=== PATIENT | female | born 1950 | race Two or more races ===

== ENCOUNTER → 2024-07-17 | Outpatient (CLI) | payer OTHER, SELFPAY ==
[2024-07-17 09:24] LABS: Collection Type, Urine Clean Catch
[2024-07-17 09:55] LABS: Basophils % (Auto) 1 % (0-2.5); Eosinophils # (Auto) 0.2 Thou/mm3 (0.0-0.5); Eosinophils % (Auto) 3 % (0-10); Hematocrit 38.6 % (36.0-46.0); Hemoglobin 13.2 g/dL (12.0-16.0); Immature Granulocytes % (Auto) 0 % (0-0); Immature Granulocytes Auto 0.02 Thou/mm3 (0.00-0.00); Lymphocytes # (Auto) 2.1 Thou/mm3 (1.0-4.8); Lymphocytes % (Auto) 34 % (10-50); Mean Corpuscular HGB Conc 34.2 g/dl (31.0-37.0); Mean Corpuscular Hemoglobin 29.9 pg (25.0-35.0); Mean Corpuscular Volume 87 fL (80-100); Monocytes # (Auto) 0.4 Thou/mm3 (0.0-0.8); Monocytes % (Auto) 7 % (0-12); Neutrophils # (Auto) 3.4 Thou/mm3 (1.8-7.7); Neutrophils % (Auto) 55 % (37-80); Nucleated Red Blood Cell % 0 /100 WBC (0); Platelet Count 196 Thou/mm3 (140-440); RDW Standard Deviation 40.7 fL (36.4-46.3); Red Blood Count 4.42 Miln/mm3 (4.00-5.20); White Blood Count 6.1 Thou/mm3 (3.6-11.0)
[2024-07-17 10:04] LABS: Bilirubin,Urine Negative (Negative); Blood,Urine Negative (Negative); Clarity,Urine Clear (Clear/Hazy); Color,Urine Lt-Yellow (Lt Yel-Yel); Glucose, Urine Negative (Negative); Ketones,Urine Negative (Negative); Leukocyte Esterase,Urine Negative (Negative); Nitrite,Urine Negative (Negative); PH,Urine 5.5 (5.0-7.0); Protein,Urine Negative (Neg - Trace); RBC,Urine 1 /hpf (0-3); Specific Gravity,Urine 1.012 (1.001-1.035); Squamous Epithelial Cell,Urine < 1 /hpf (0-5); Urobilinogen,Urine Negative mg/dL (0.0-1.0); WBC,Urine 1 /hpf (0-5)
[2024-07-17 10:09] LABS: Alanine Aminotransferase 23 U/L (10-49); Albumin, Serum 4.3 gm/dL (3.4-4.8); Alkaline Phosphatase 78 U/L (46-116); Anion Gap 9 (7-16); BUN/Creatinine Ratio 17 Ratio (12-20); Bilirubin,Total 0.6 mg/dL (0.3-1.2); Blood Urea Nitrogen 12 mg/dL (9-23); Calcium 9.2 mg/dL (8.3-10.6); Calcium (Corrected) 9.2 mg/dL (8.5-10.1); Carbon Dioxide 31.2 mMol/L (20.0-31.0); Cardiac Risk Estimate 3.5 RATIO (3.7-5.6); Chloride 104 mMol/L (98-107); Cholesterol 175 mg/dL (132-200); Creatinine (Component) 0.7 mg/dL (0.6-1.3); Free T4 (Free Thyroxine) 1.13 ng/dL (0.89-1.76); Globulin 2.2 gm/dL (2.3-3.5); Glucose 125 mg/dL (74-106); HDL Cholesterol 50 mg/dL (40-60); LDL Cholesterol,Calculated 87 mg/dL (0-130); Osmolality,Calculated 287 (275-295); Potassium 4.6 mMol/L (3.4-5.1); Sodium 144 mMol/L (136-145); Thyroid Stimulating Hormone 2.44 uIU/mL (0.55-4.78); Total Protein 6.5 gm/dL (5.7-8.2); Triglycerides 190 mg/dL (30-150); eGFR > 60 See Note
== END | disposition home or self-care (01) ==
PROVIDERS: PCP Family Medicine; Referring Provider Registered Nurse General Practice; Visit Provider Family Medicine
DX: I10 Essential (primary) hypertension (principal); E03.8 Other specified hypothyroidism; E78.2 Mixed hyperlipidemia
CPT/HCPCS: 36415; 80053; 80061; 81001; 84439; 84443; 85025

== ENCOUNTER → 2024-08-27 | Outpatient (CLI) | payer OTHER, SELFPAY ==
--- NOTE | 2024-08-27 09:30 | XR_ITS ---
Examination: Screening digital mammography, bilateral Computer aided detection 3-D breast Tomosynthesis, bilateral Date and time of exam: August 27, 2024 0937 hours Compared to mammograms dating to September 29, 2015 Indication: Screening Technique: Nonmagnified MLO, CC views of the breasts to been obtained, reconstructed from 3-D Tomosynthesis images. R2 computer aided detection program utilized for evaluation of suspicious masses and/or abnormal calcifications. 3-D Tomosynthesis images obtained. Findings: The breasts are heterogeneously dense, which may obscure small masses Benign calcifications. No interval suspicious masses Impression: BI-RADS category II: Benign Findings. Recommend 1 year follow-up mammogram.
== END | disposition home or self-care (01) ==
LOC: CDIM 09:18
PROVIDERS: Referring Provider Family Medicine; Visit Provider Family Medicine
DX: Z12.31 Encounter for screening mammogram for malignant neoplasm of breast (principal); R92.323 Mammographic fibroglandular density, bilateral breasts; R92.1 Mammographic calcification found on diagnostic imaging of breast
CPT/HCPCS: 77063; 77067

== ENCOUNTER → 2024-10-16 | Outpatient (CLI) | payer OTHER, SELFPAY ==
[2024-10-16 08:42] LABS: Glucose Estimated Average 126 mg/dL (80-131); Hemoglobin A1C 6.0 % Hgb (4.8-6.0)
== END | disposition home or self-care (01) ==
LOC: COPL 07:23
PROVIDERS: PCP Family Medicine; Referring Provider Family Medicine; Visit Provider Family Medicine
DX: R73.01 Impaired fasting glucose (principal)
CPT/HCPCS: 36415; 83036